=== PATIENT | female | born 1990 ===

== ENCOUNTER 2017-07-21 17:36 | Emergency (ER) | payer OTHER ==
[2017-07-21 17:36] VITALS: BMI 27.1
[2017-07-21 17:47] VITALS: BP 117/61; RESP 16; TEMP 98.1; O2SAT 100
[2017-07-21] MEDS ORDERED: Sodium Chloride 0.9% 1,000 ML IV STA (17:59)
--- NOTE | 2017-07-21 18:01 | ED PDOC ---
HPI: Chest Pain Time Seen by Provider: 07/21/17 17:52 Chief Complaint (Nursing): Chest Pain Chief Complaint (Provider): Chest Pain History Per: Patient History/Exam Limitations: no limitations Onset/Duration Of Symptoms: Days (x2) Current Symptoms Are (Timing): Still Present Additional Complaint(s): 27 year old female who presents to the emergency department with a complaint of constant, right-sided chest "throbbing" radiating to back associated with palpitations, shortness of breath ongoing since yesterday. Denied any nausea, vomiting, diarrhea, abdominal pain, dizziness, numbness, tingling or recent travels. Patient stated she had similar symptoms in past due to elevated liver enzymes which she had followed up with ladle patcher and placed on diagnostic cardiac sonographer. She also noted taking an anti-inflammatory last at 1830 last night. PMD: Pauline Chambers MD Past Medical History Reviewed: Historical Data, Nursing Documentation, Vital Signs Vital Signs: Last Vital Signs Temp 98.1 F 07/21/17 17:46 Pulse 68 07/21/17 18:43 Resp 16 07/21/17 17:46 BP 117/61 07/21/17 17:46 Pulse Ox 100 07/21/17 20:02 - Medical History PMH: Anemia Denies: HIV, Chronic Kidney Disease - Surgical History Surgical History: No Surg Hx - Family History Family History: States: Unknown Family Hx - Home Medications Home Medications: Ambulatory Orders Medication Instructions Recorded Allergy Med. Liq. 1 dose PO DAILY 06/01/17 - Allergies Allergies/Adverse Reactions: Allergies Allergy/AdvReac Type Severity Reaction Status Date / Time lactose AdvReac Severe DIARRHEA Verified 07/21/17 17:46 Review of Systems ROS Statement: Except As Marked, All Systems Reviewed And Found Negative Cardiovascular: Positive for: Chest Pain (right-sided throbbing), Palpitations Respiratory: Positive for: Shortness of Breath Gastrointestinal: Negative for: Nausea, Vomiting, Abdominal Pain, Diarrhea Musculoskeletal: Positive for: Back Pain Neurological: Negative for: Numbness (or tingling), Dizziness Physical Exam - Reviewed Nursing Documentation Reviewed: Yes Vital Signs Reviewed: Yes - Physical Exam Appears: Positive for: Non-toxic, No Acute Distress Head Exam: Positive for: ATRAUMATIC, NORMAL INSPECTION, NORMOCEPHALIC Skin: Positive for: Normal Color. Negative for: Rash Eye Exam: Positive for: EOMI, Normal appearance, PERRL ENT: Positive for: Normal ENT Inspection Neck: Positive for: Normal, Painless ROM, Supple Cardiovascular/Chest: Positive for: Regular Rate, Rhythm, Chest Non Tender Respiratory: Positive for: Normal Breath Sounds. Negative for: Decreased Breath Sounds Gastrointestinal/Abdominal: Positive for: Normal Exam, Soft. Negative for: Tenderness Back: Positive for: Normal Inspection. Negative for: L CVA Tenderness, R CVA Tenderness Extremity: Positive for: Normal ROM, Capillary Refill (<2). Negative for: Tenderness, Pedal Edema, Calf Tenderness Neurologic/Psych: Positive for: Alert (x3), Oriented. Negative for: Motor/ Sensory Deficits - Laboratory Results Result Diagrams: 07/21/17 18:35 07/21/17 18:35 Interpretation Of Abn Labs: bun 18 - ECG ECG: Positive for: Interpreted By Me, Viewed By Me ECG Rhythm: Positive for: Normal QRS, Normal ST Segment, Sinus Rhythm O2 Sat by Pulse Oximetry: 100 (RA) Pulse Ox Interpretation: Normal - Radiology X-Ray: Read By Radiologist X-Ray Interpretation: No Acute Disease - Progress ED Course And Treament: 2002: Stable. AAOx3. Pain free. Tolerated PO. Fu with pcp. Trop elevated in the past and cardiology cleared pt. She has seen cards outpt. and states no issues. Stopped asa. No leg pain, long distance travel. No control. Medical Decision Making Medical Decision Making: Initial Impression: Chest pain Initial Plan: * EKG * CMP * Troponin I * Urine * CBC * PTT * PT * CXR * NS 1,000ml IV per 1,000mls/hr * Toradol 15mg IVP Time: 1806 --CXR: NSR at 83 BMP ~ Scribe Attestation: Documented by Selam Foley, acting as a scribe for Calixto Varghese MD. Provider Scribe Attestation: All medical record entries made by the Scribe were at my direction and personally dictated by me. I have reviewed the chart and agree that the record accurately reflects my personal performance of the history, physical exam, medical decision making, and the department course for this patient. I have also personally directed, reviewed, and agree with the discharge instructions and disposition. Disposition - Clinical Impression Clinical Impression: Acute chest pain - Patient ED Disposition Is Patient to be Admitted: No Counseled Patient/Family Regarding: Studies Performed, Diagnosis, Need For Followup - Disposition Referrals: [facility]Outside] - 07/22/17 Disposition: Routine/Home Disposition Time: 20:04 Condition: STABLE Additional Instructions: Return if not better in 3 days. Instructions: Chest Pain (ED) Forms: [employer] (Citizen Of [place])
[2017-07-21 18:45] VITALS: PULSE 68
[2017-07-21 18:54] LABS: BASO # 0.1 K/uL (0.0-0.2); EOS # 0.1 K/uL (0.0-0.7); EOS % 1.2 % (0.0-4.0); HEMOGLOBIN 10.6 g/dL (12.0-16.0); LYMPH # 3.4 K/uL (1.0-4.3); LYMPH % 53.7 % (20.0-40.0); MEAN CELL VOLUME 84.8 fl (81.0-99.0); MEAN CORPUSCULAR HEMOGLOBIN 26.8 pg (27.0-31.0); MEAN CORPUSCULAR HGB CONC 31.6 g/dL (33.0-37.0); MEAN PLATELET VOLUME 8.6 fl (7.2-11.7); MONO # 0.6 K/uL (0.0-0.8); MONO % 9.1 % (0.0-10.0); NEUT # 2.2 K/uL (1.8-7.0); NRBC % 0.1 % (0.0-0.0); RBC 3.95 Mil/uL (3.80-5.20); RED CELL DISTRIBUTION WIDTH 18.3 % (11.5-14.5); WHITE BLOOD COUNT 6.3 K/uL (4.8-10.8)
--- NOTE | 2017-07-21 18:55 | RAD ---
HISTORY: Dyspnea COMPARISON: 12/31/2015 FINDINGS: LUNGS: No active pulmonary disease. PLEURA: No significant pleural effusion identified, no pneumothorax apparent. CARDIOVASCULAR: Normal. OSSEOUS STRUCTURES: No significant abnormalities. VISUALIZED UPPER ABDOMEN: Normal. OTHER FINDINGS: None. IMPRESSION: No active disease. No significant interval change compared to the prior examination(s).
[2017-07-21 18:58] LABS: ALB/GLOB RATIO 1.3 (1.0-2.1); ALBUMIN 4.4 g/dL (3.5-5.0); ALT/SGPT 48 U/L (9-52); AST/SGOT 37 U/L (14-36); BLOOD UREA NITROGEN 18 mg/dl (7-17); CALCIUM 9.2 mg/dL (8.4-10.2); GFR AFRICAN-AMERICAN > 60; GFR NON-AFRICAN AMERICAN > 60
[2017-07-21 19:26] LABS: INR 1.1 (0.9-1.2); PARTIAL THROMBOPLASTIN TIME 29.3 Seconds (25.6-37.1); PROTHROMBIN TIME 12.2 Seconds (9.8-13.1)
--- NOTE | 2017-07-22 10:40 | CARD ---
APPROVED REPORT EKG Measurement Heart [id number] <Conclusion> Sinus rhythm with occasional premature ventricular complexes Low voltage QRS Borderline ECG
== END 2017-07-21 20:40 | disposition home or self-care (01) ==
LOC: H.ER 17:36
DX: R07.89 Other chest pain (principal); M54.9 Dorsalgia, unspecified
CPT/HCPCS: 71045; 80053; 81025; 84484; 85025; 85610; 85730; 93005; 96374; 99282; J1885; J7040